=== PATIENT | female | born 1935 | race Caucasian/White ===

== ENCOUNTER → 2017-01-28 | Outpatient (CLI) | payer MEDICARE, OTHER ==
[~2017-01-28] MED LIST: DIAZEPAM 10 MG TABLET. ONE; IV NORMAL SALINE 1,000 ML BAG ONE; LIDOCAINE 1% 20 ML VIAL. ONE; MIDAZOLAM HCL/PF 2 MG/2 ML VIAL. ONE; VANCOMYCIN 1GM IVPB FOR OMNI. ONE; fentaNYL PF VIAL 100 MCG/2 ML VIAL ONE; hydrALAZINE 20 MG/ML VIAL. ONE; methylPREDNISolone SOD SUCC PF 125 MG/2 ML VIAL. ONE
--- NOTE | 2017-01-28 16:22 | PCVCINTER ---
EXAM: L2 KYPHOPLASTY INDICATION: Back pain not responding to conservative therapy. Osteoporosis. Subacute compression fractures. PROCEDURE: Procedure and risks of kyphoplasty including bleeding, infection, apparent cement placement, and neurologic deficit were discussed with the patient and consent obtained. IV conscious sedation was utilized with appropriate monitoring for 30 minutes. Patient was placed prone in the interventional suite and the back was prepped with a 10 minute Betadine scrub followed by Betadine pain with sterile draping. IV antibiotics were given. Under fluoroscopic guidance an 11-gauge kyphoplasty needle/cannula was advanced across the left L2 pedicle via a posterolateral approach and its tip positioned in the anterior-midline portion of the vertebral body under fluoroscopic guidance. The AVAmax kyphoplasty balloon was placed through the cannula into the vertebral body and inflated to restore height and create a void. Balloon was removed and catheter fusion cement was carefully instilled into the vertebra under continuous fluoroscopic guidance. Needle/cannula was removed. No immediate complications. FINDINGS: Technically satisfactory L2 kyphoplasty using fluoroscopic guidance. Adequate cement placement within the vertebral body. No worrisome cement placement. IMPRESSION: L2 kyphoplasty as described above. FOLLOW-UP: I will follow up with the patient in clinic in 2 weeks regarding their progress. LOC:[id number]
== END | disposition home or self-care (01) ==
LOC: PCVCCLINIC 09:24 → EDBD 09:24
PROVIDERS: ATTEND Nuclear Medicine Nuclear Cardiology
DX: M80.88XA Other osteoporosis with current pathological fracture, vertebra(e), initial encounter for fracture (principal)
CPT/HCPCS: 22514; J0360; J2250; J2930; J3010; J3370; J7030; 77001